=== PATIENT | female | born 1965 | race Caucasian/White ===

== ENCOUNTER 2023-10-20 13:59 | Emergency (ER) | payer OTHER ==
[2023-10-20] MEDS: Cyclobenzaprine 10 MG Tab PO ONE (14:26)
[2023-10-20] MEDS: Ketorolac 30 MG/ML SDV IM ONE (14:26)
[2023-10-20] MEDS: Acetaminophen 500 MG Tab PO ONE (14:27)
== END 2023-10-20 16:15 | disposition home or self-care (01) ==
LOC: FB.ED 13:59
DX: S33.5XXA Sprain of ligaments of lumbar spine, initial encounter (principal); Z79.899 Other long term (current) drug therapy; X50.1XXA Overexertion from prolonged static or awkward postures, initial encounter
CPT/HCPCS: 72110; 96372; 99283; A9270-GY; J1885

== ENCOUNTER 2025-04-12 11:17 | Emergency (ER) | payer BC, OTHER ==
[2025-04-12] MEDS: diphenhydrAMINE 50 MG/ML SDV IVPUSH ONE (11:50)
[2025-04-12] MEDS: Dexamethasone 4 MG/ML 5 ML MDV IVPUSH ONE (11:52)
[2025-04-12 11:55] LABS: BASOPHILS ABSOLUTE AUTO 0.0 x10-3/uL (0.0-0.1); BASOPHILS PERCENT AUTO 0.4 % (0.2-1.5); EOSINOPHILS ABSOLUTE AUTO 0.1 x10-3/uL (0.0-0.8); EOSINOPHILS PERCENT AUTO 0.6 % (0.6-8.1); LYMPHOCYTES ABSOLUTE AUTO 2.1 x10-3/uL (1.0-4.4); LYMPHOCYTES PERCENT AUTO 16.6 % (18.4-52.1); MEAN PLATELET VOLUME 8.6 fL (7.1-12.4); MONOCYTES ABSOLUTE AUTO 0.5 x10-3/uL (0.3-1.0); MONOCYTES PERCENT AUTO 4.0 % (4.4-15.7); NEUTROPHILS ABSOLUTE AUTO 9.8 x10-3/uL (1.5-6.3); NEUTROPHILS PERCENT AUTO 78.4 % (30.8-76.2); PLATELET COUNT,PLT 264 x10(3)uL (151-488); RED BLOOD CELL COUNT 4.82 x10(6)uL (3.60-5.20); RED CELL DISTRIBUTION WIDTH 13.5 % (12.3-16.5); WHITE BLOOD CELL COUNT,WBC 12.6 x10-3/uL (3.0-10.3)
[2025-04-12 11:56] LABS: BLOOD UREA NITROGEN,BUN 11 mg/dL (7-18); CARBON DIOXIDE,CO2 21 mmol/L (21-32); CHLORIDE,CL 102 mmol/L (100-110); CREATININE 0.8 mg/dL (0.55-1.02); ESTIMATED GFR 84 mL/min (>60); GLUCOSE RANDOM 118 mg/dL (80-116); POTASSIUM,K 3.7 mmol/L (3.5-5.3); SODIUM,NA 133 mmol/L (135-145)
[2025-04-12 12:02] LABS: A/G RATIO 1.0; ALANINE AMINOTRANSFERASE,ALT 17 U/L (12-36); ASPARTATE AMNIOTRANSFERASE,AST 16 IU/L (5-25); BILIRUBIN TOTAL 1.3 mg/dL (0.1-1.3); PROTEIN TOTAL,TP 7.0 g/dL (6.0-8.0)
[2025-04-12] MEDS: Ketorolac 30 MG/ML SDV IVPUSH ONE (12:15)
[2025-04-12] MEDS: HYDROmorphone 2 MG/ML SDV IVPUSH ONE (13:12)
[2025-04-12 14:13] LABS: GLUCOSE,URINE NORMAL (NORMAL); OCCULT BLOOD,URINE NEGATIVE (NEGATIVE)
[2025-04-12 14:14] LABS: APPEARANCE,URINE CLEAR (CLEAR)
== END 2025-04-12 14:30 | disposition home or self-care (01) ==
LOC: FB.ED 11:17
DX: J18.9 Pneumonia, unspecified organism (principal); Z87.891 Personal history of nicotine dependence; Z79.899 Other long term (current) drug therapy
CPT/HCPCS: 71046; 80053; 81003; 83605; 85025; 87426-QW; 96361; 96374; 96375; 99284; 99285-25; J1100; J1171; J1200; J1885; J7030